=== PATIENT | male | born 1930 | race Caucasian/White ===

== ENCOUNTER 2017-12-17 13:26 | Inpatient (IN) | payer OTHER, BC ==
[~2017-12-17] VITALS: Ht 162.6 cm; Wt 65.8 kg
[2017-12-17 13:47] VITALS: Ht 162.6 cm; Wt 65.8 kg
[2017-12-17 14:31] LABS: BASOPHIL % 0.3 % (0-2); PLATELET COUNT 220 x10^3mcL (130-400); RED CELL DISTRIBUTION WIDTH 14.1 % (11.5-14.5)
[2017-12-17] MEDS ORDERED: DETROL LA2 MG PO (16:49)
[2017-12-17 17:13] LABS: CALCIUM 8.8 mg/dL (8.5-10.1); CARBON DIOXIDE 25.7 mmol/L (21-32); CHLORIDE SERUM 103 mmol/L (98-107); GLUCOSE SERUM 95 mg/dL (74-106); POTASSIUM SERUM 4.4 mmol/L (3.5-5.1); SODIUM SERUM 140 mmol/L (136-145)
[2017-12-17 17:18] LABS: ALBUMIN 3.3 g/dL (3.4-5.0); ALKALINE PHOSPHATASE 101 U/L (46-116); ALT/SGPT 23 U/L (16-63); AST/SGOT 20 U/L (15-37); BILIRUBIN TOTAL 0.4 mg/dL (0.20-1.00); TOTAL PROTEIN, SERUM 6.7 g/dL (6.4-8.2)
[2017-12-17 17:58] VITALS: BP 164/77
[2017-12-17 18:06] LABS: MAGNESIUM 2.1 mg/dL (1.8-2.4); PHOSPHOROUS 2.7 mg/dL (2.5-4.9)
[2017-12-17 18:09] LABS: CHOLESTEROL/HDL RATIO 3.2
[2017-12-17 20:30] VITALS: BP 124/65
[2017-12-18 01:15] LABS: microscopic required? NO
[2017-12-18 01:22] LABS: urine erythrocyte NEGATIVE (NEGATIVE)
[2017-12-18 05:01] VITALS: BP 138/69
[2017-12-18 06:21] LABS: BASOPHIL % 0.3 % (0-2); PLATELET COUNT 210 x10^3mcL (130-400); RED CELL DISTRIBUTION WIDTH 13.8 % (11.5-14.5)
[2017-12-18 06:56] LABS: CALCIUM 8.6 mg/dL (8.5-10.1); CARBON DIOXIDE 25.6 mmol/L (21-32); CHLORIDE SERUM 106 mmol/L (98-107); CREATININE SERUM 0.9 mg/dL (0.7-1.3); GLUCOSE SERUM 93 mg/dL (74-106); PHOSPHOROUS 2.9 mg/dL (2.5-4.9); POTASSIUM SERUM 3.9 mmol/L (3.5-5.1); SODIUM SERUM 141 mmol/L (136-145)
[2017-12-18 17:00] VITALS: BP 108/67
[2017-12-18 21:21] VITALS: BP 96/56
[2017-12-19 06:33] VITALS: BP 137/77
[2017-12-19 06:51] LABS: BASOPHIL % 0.1 % (0-2); PLATELET COUNT 219 x10^3mcL (130-400); RED CELL DISTRIBUTION WIDTH 14.1 % (11.5-14.5)
[2017-12-19 07:16] LABS: CARBON DIOXIDE 25.9 mmol/L (21-32); CHLORIDE SERUM 106 mmol/L (98-107); GLUCOSE SERUM 97 mg/dL (74-106); MAGNESIUM 1.9 mg/dL (1.8-2.4); PHOSPHOROUS 3.1 mg/dL (2.5-4.9); POTASSIUM SERUM 4.4 mmol/L (3.5-5.1); SODIUM SERUM 141 mmol/L (136-145)
[2017-12-19 09:15] VITALS: BP 112/56
[2017-12-19 10:16] VITALS: BP 112/56
[2017-12-19] MEDS ORDERED: MECLIZINE HCL12.5 MG PO (15:12)
[2017-12-19] MEDS ORDERED: ZES5 PO (15:12)
== END 2017-12-19 15:50 | disposition home health service (06) | DRG 89 ==
LOC: ED 13:26 → DU 14:52 → MU 14:52 → DU 17:43 → MU 18:00
PROVIDERS: Emergency Medicine; Family Medicine
PROC: 0HQ0XZZ Repair Scalp Skin, External Approach (ICD-10-PCS; principal; 2017-12-17)
DX: S06.0X0A Concussion without loss of consciousness, initial encounter (principal); I42.2 Other hypertrophic cardiomyopathy; E44.1 Mild protein-calorie malnutrition; G90.8 Other disorders of autonomic nervous system; S01.01XA Laceration without foreign body of scalp, initial encounter; I44.7 Left bundle-branch block, unspecified; N31.9 Neuromuscular dysfunction of bladder, unspecified; W18.39XA Other fall on same level, initial encounter; I16.0 Hypertensive urgency; E78.5 Hyperlipidemia, unspecified; R73.03 Prediabetes; M47.9 Spondylosis, unspecified; Z85.46 Personal history of malignant neoplasm of prostate; Z68.24 Body mass index [BMI] 24.0-24.9, adult; Z91.81 History of falling; Y92.481 Parking lot as the place of occurrence of the external cause
CPT/HCPCS: 83880; 97110-GP; J2001; J7030; Q0092